=== PATIENT | male | born 1985 | race Caucasian/White ===

== ENCOUNTER 2020-04-28 11:06 | Outpatient (REF) | payer OTHER, SELFPAY ==
[2020-04-28 14:41] LABS: Cholesterol 263 mg/dL; HDL Cholesterol 74 mg/dL; LDL Cholesterol Calculated 175 mg/dl; Triglycerides 71 mg/dL
== END 2020-04-28 11:07 | disposition home or self-care (01) ==
LOC: HO.HMGCLDS 11:06
PROVIDERS: PCP Nurse Practitioner Family; Visit Provider Nurse Practitioner Family
DX: E78.5 Hyperlipidemia, unspecified (principal)
CPT/HCPCS: 36415; 80061